=== PATIENT | male | born 1995 | race Asian ===

== ENCOUNTER 2020-03-03 18:58 | Emergency (ER) | payer OTHER ==
[2020-03-03] MEDS ORDERED: BUFFERED LIDOCAINE 10 ML SYRINGE SUBQ STA (19:19)
--- NOTE | 2020-03-03 19:48 | ED Physician Documentation ---
PD HPI UPPER EXT INJURY - Stated complaint Stated Complaint: L WRIST LAC - Chief complaint Chief Complaint: Laceration - History obtained from History obtained from: Patient - History of Present Illness Location: Left, Wrist Type of injury: Laceration Where injury occurred: Home Timing - duration: Minutes (30) Pain level max: 3 Pain level now: 2 Improved by: Rest Worsened by: Moving, Palpating Associated symptoms: No: Weakness, Numbness, Tingling, Swelling - Additonal information Additional information: 24-year-old right-handed male presents to the emergency department with a laceration to the left wrist. He was frozen chicken when the knife slipped and cut him. He has full use of the hand. Tetanus is up-to-date. Patient is right-handed. Review of Systems Constitutional: denies: Fever Neurologic: denies: Focal weakness, Numbness PD PAST MEDICAL HISTORY - Past Medical History Past Medical History: No - Past Surgical History Past Surgical History: No - Present Medications Home Medications: Ambulatory Orders Medication Instructions Recorded Confirmed No Known Home Medications 03/03/20 03/03/20 - Allergies Allergies/Adverse Reactions: Allergies Allergy/AdvReac Type Severity Reaction Status Date / Time No Known Drug Allergies Allergy Verified 03/03/20 19:11 - Social History Does the pt smoke?: No Smoking Status: Never smoker Does the pt drink ETOH?: No Does the pt have substance abuse?: No - Immunizations Immunizations are current?: Yes - POLST Patient has POLST: No PD ED PE NORMAL - Vitals Vital signs reviewed: Yes - General General: Alert and oriented X 3, No acute distress - Derm Derm: Warm and dry - Neuro Neuro: Alert and oriented X 3 - Psych Psych: Normal mood, Normal affect PD ED PE EXPANDED - Extremities MIKAELA UE/Hands Visual: 1 - laceration (2 cm, linear, subcutaneous. Neurovascular intact.) Results - Vitals Vitals: Vital Signs - 24 hr 03/03/20 03/03/20 19:09 19:55 Temperature 37.0 C 37.4 C Heart Rate 88 73 Respiratory 16 16 Rate Blood Pressure 170/94 H 145/81 H O2 Saturation 95 97 Oxygen O2 Source Room air Procedures - Laceration (location) L wrist Length in cm: 2 Wound type: Linear, Into subcut fat, Clean Neurovascular status: Sensory intact (states mild decrease sensation over the palm of hand, thumb, index and middle finger. normal motor exam), Motor intact, Vascular intact Tendon involvement: Tendon intact, Tendon Injury Anesthesia: Lidocaine 1% Wound Preparation: Irrigated copiously NS Skin layer closure: Nylon, Interrupted, Size #-0 - enter number (4), Sutures - enter # (2) Other: Patient tolerated well, No complications, Neurovascular intact, Tetanus UTD Complexity: Simple PD MEDICAL DECISION MAKING - ED course Complexity details: considered differential, d/w patient ED course: Patient with left wrist laceration. mild decrease sensation over the hand. Laceration repaired. Warnings of infection and instructions on wound care given at bedside. Also counseled on how to minimize scarring. Patient counseled regarding signs and symptoms for which I believe and urgent re-evaluation would be necessary. Patient with good understanding of and agreement to plan and is comfortable going home at this time This document was made in part using voice recognition software. While efforts are made to proofread this document, sound alike and grammatical errors may occur. Departure - Departure Disposition: 01 Home, Self Care Clinical Impression: Laceration of wrist Qualifiers: Encounter type: initial encounter Laterality: left Qualified Code(s): S61.512A - Laceration without foreign body of left wrist, initial encounter Condition: Good Instructions: ED Laceration Ext Sutr Stap Tape Follow-Up: your,doctor in 10-14 days for suture removal. [Other] Comments: Return if you worsen. Follow up with your doctor in 10-14 days for suture removal. Return for redness, swelling or drainage from the wound. Discharge Date/Time: 03/03/20 20:14
[2020-03-03 19:57] VITALS: BP 145/81
== END 2020-03-03 20:14 | disposition home or self-care (01) ==
LOC: ED 18:58
DX: S61.512A Laceration without foreign body of left wrist, initial encounter (principal); W26.0XXA Contact with knife, initial encounter; Y93.G1 Activity, food preparation and clean up; Y92.009 Unspecified place in unspecified non-institutional (private) residence as the place of occurrence of the external cause
CPT/HCPCS: 12001; 99282; 99283